=== PATIENT | male | born 1985 | race African-American/Black ===

== ENCOUNTER 2017-03-17 11:05 | Emergency (ER) | payer MEDICAID ==
[~2017-03-17] VITALS: Ht 193 cm; Wt 82.0 kg
[2017-03-17 11:35] VITALS: BP 110/71
[2017-03-17] MEDS ORDERED: NAPROXEN 500MG TABLET PO ONE (14:30)
== END 2017-03-17 15:43 | disposition home or self-care (01) ==
LOC: ER 14:25
DX: K08.89 Other specified disorders of teeth and supporting structures (principal); F17.200 Nicotine dependence, unspecified, uncomplicated
CPT/HCPCS: 99283

== ENCOUNTER 2018-03-01 00:45 | Emergency (ER) | payer MEDICAID ==
[~2018-03-01] VITALS: Ht 193 cm; Wt 82.0 kg
[2018-03-01] MEDS ORDERED: IBUPROFEN 600MG TABLET PO ONE (01:15)
[2018-03-01 04:08] VITALS: BP 103/64
== END 2018-03-01 04:12 | disposition home or self-care (01) ==
LOC: ER 00:45
DX: K08.89 Other specified disorders of teeth and supporting structures (principal); F12.10 Cannabis abuse, uncomplicated
CPT/HCPCS: 99283

== ENCOUNTER 2018-06-13 04:26 | Emergency (ER) | payer SELFPAY ==
[~2018-06-13] VITALS: Ht 193 cm; Wt 84.0 kg
[2018-06-13 06:40] VITALS: BP 136/79
== END 2018-06-13 07:53 | disposition home or self-care (01) ==
LOC: ER 07:24
DX: K02.9 Dental caries, unspecified (principal); K08.89 Other specified disorders of teeth and supporting structures; F17.200 Nicotine dependence, unspecified, uncomplicated; F12.10 Cannabis abuse, uncomplicated; Z88.9 Allergy status to unspecified drugs, medicaments and biological substances; Z98.890 Other specified postprocedural states
CPT/HCPCS: 99283; Z7610

== ENCOUNTER 2018-12-18 01:21 | Emergency (ER) | payer MEDICAID ==
[~2018-12-18] VITALS: Ht 190.5 cm; Wt 84.0 kg
[2018-12-18] MEDS ORDERED: IBUPROFEN 600MG TABLET PO ONE (04:00)
[2018-12-18 05:18] VITALS: BP 103/54
== END 2018-12-18 05:24 | disposition home or self-care (01) ==
LOC: ER 01:47
DX: K08.89 Other specified disorders of teeth and supporting structures (principal); F17.210 Nicotine dependence, cigarettes, uncomplicated; F12.10 Cannabis abuse, uncomplicated
CPT/HCPCS: 99283

== ENCOUNTER 2019-10-30 17:33 | Emergency (ER) | payer MEDICAID | END 2019-10-30 23:05 | disposition left against medical advice (07) | LOC: ER 17:33 | DX: K08.89 Other specified disorders of teeth and supporting structures (principal); Z53.21 Procedure and treatment not carried out due to patient leaving prior to being seen by health care provider ==